=== PATIENT | female | born 1965 | race Caucasian/White ===

== ENCOUNTER 2018-05-01 09:04 | Outpatient (CLI) | payer OTHER ==
--- NOTE | 2018-05-01 10:46 | MMO ---
BILATERAL MAMMOGRAMS: DATE: 05/01/18 HISTORY: Screening mammography. COMPARISON: Multiple exams back to 10/31/13. FINDINGS: Scattered fibroglandular densities. No dominant mass or suspicious calcifications. The study was evaluated with the assistance of computer-aided detection. IMPRESSION: BIRADS 1: Negative Suggest routine follow-up. POS: [facility]
== END 2018-05-01 09:05 | disposition home or self-care (01) ==
LOC: SCSMAMMO 09:04
PROVIDERS: ATTEND Family Medicine
DX: Z12.31 Encounter for screening mammogram for malignant neoplasm of breast (principal)
CPT/HCPCS: 77067